=== PATIENT | female | born 1975 | race Caucasian/White ===

== ENCOUNTER → 2017-02-07 | Outpatient (CLI) | payer OTHER ==
--- NOTE | 2017-02-07 23:37 | PAIN ---
DATE OF SERVICE: 02/07/2017 PROGRESS NOTE FOR PAIN CLINIC DIAGNOSES: Low back pain with lumbar spondylosis and lumbosacral spondylosis. HISTORY OF PRESENT ILLNESS: The patient is a 41-year-old female who returns for followup status post right-sided L4-L5 and L5-S1 facet injections on 06/29/2016. The patient reports she did very well with 95% improvement for about 5 months, although the pain has now begun "creeping back" in the right low back and hip radiating to posterior gluteus occasionally, but mostly in the back itself, identical that what it was prior to her injection. The patient reports the pain as 7 on a scale of 10 at its worst, is a 5 currently and a 5 at least, it is constant, aching and dull, shooting pain occasionally, but mostly aching in the right back. She has been increasing her activity with some personal driver activities and this seems to help as well, but still significant pain, which is increasing with time and activity. The patient reports no new motor or sensory deficits, no new bowel or bladder incontinence or other complaints. PAST MEDICAL HISTORY: Significant for arthritis only. PREVIOUS SURGERY: Includes ovarian cystectomy in 2003, foot surgery, bunionectomy and cholecystectomy. CURRENT MEDICATIONS: Updated, include senna, ibuprofen, and escitalopram. FAMILY HISTORY: Significant for skin cancer in a sister, high blood pressure in father, rheumatoid arthritis in her mother. ALLERGIES: The patient has no known drug allergies. SOCIAL HISTORY: The patient does not smoke. Drinks 2 glasses of wine a month on an average. She is , lives with her spouse in [place], [place]. Active duty in . REVIEW OF SYSTEMS: The patient's review of systems is positive for those items mentioned in history of present illness. All systems reviewed and otherwise negative. It is complete and well documented on the patient's chart. PHYSICAL EXAMINATION: VITAL SIGNS: Today, the patient's blood pressure is 112/83, pulse 87, respirations 18, temperature is 98.1 degrees Fahrenheit. Height is 5 feet 7 inches, weight is 178 pounds. GENERAL: The patient is awake, alert, oriented, appropriate, very pleasant demeanor. HEENT: Shows normocephalic, atraumatic. Extraocular movements are intact, symmetrical. Oral cavity, mucous membranes are moist and pink. Dentition is intact. NECK: Shows anterior throat supple without palpable lymphadenopathy noted. Swallow reflex is symmetrical. Neck shows full rotational motion of the cervical spine without difficulty. CHEST: Shows normal on inspection. Breath sounds are clear to auscultation bilaterally. HEART: Shows S1 and S2 clear. No murmurs auscultated. ABDOMEN: Soft, nontender, nondistended. No palpable organomegaly is noted. No rebound or guarding. BACK: Shows grossly midline spine. Normal thoracic kyphosis and lumbar lordotic curvature. The patient's lumbar paraspinous muscle shows some significant tenderness with palpation over the right superior medial gluteus and the right low lumbar paraspinous musculature without radiation, but just right of midline in the paraspinous distribution on the right. Left side is supple and nontender with normal muscle girth bilaterally and symmetrical in appearance with paraspinous musculature without significant radiation on the right or left. Lower extremities show deep tendon reflexes 2+ in the patellar and 1+ in the tendo calcaneus tendons are symmetrical. Motor exam is strong with 5/5 dorsiflexion, extension, quadriceps and hamstring flexion and symmetrical as well. The patient shows significant tenderness in the right side with extension of the lumbar spine only, but not with forward flexion, also moderate tenderness with right lateral rotation greater than 10 degrees, but not left lateral rotation greater than 10 degrees. PLAN: Options were discussed with the patient and the patient's old chart was reviewed as her current medication regimen updated. Current review of systems updated as noted. We will preauthorize the patient for a right-sided lumbar facet injection at L4-L5 and L5-S1 levels. The patient will return to clinic once this is preauthorized and we will plan on proceeding at that time. APRIL SORENSON MD DR: RUFINA/ivette JOB#: [id number] / [id number]
== END | disposition home or self-care (01) ==
LOC: PNCL 07:58
PROVIDERS: ATTEND Anesthesiology
DX: M47.817 Spondylosis without myelopathy or radiculopathy, lumbosacral region (principal)
CPT/HCPCS: 99212